=== PATIENT | male | born 1955 | race Caucasian/White ===

== ENCOUNTER → 2020-09-20 | Outpatient (CLI) | payer BC ==
[2020-09-20 09:25] LABS: HEMOGLOBIN 14.2 gm/dl (14.0-17.5); RED BLOOD COUNT 4.65 M/UL (4.20-5.50); WHITE BLOOD COUNT 12.5 K/UL (4.5-11.0)
[2020-09-20 09:51] LABS: BUN/CREATININE RATIO 13 (0-10)
[2020-09-21 07:10] LABS: THYROXINE (T4) 7.6 ug/dL (4.5-12.0)
[2020-09-21 08:10] LABS: VITAMIN D, 25-HYDROXY 42.7 ng/mL (30.0-100.0)
== END ==
LOC: LAB 08:14
PROVIDERS: Nurse Practitioner
DX: E55.9 Vitamin D deficiency, unspecified (principal); R53.83 Other fatigue; E78.5 Hyperlipidemia, unspecified
CPT/HCPCS: 80053; 80061; 84436; 84443; 84480; 85025

== ENCOUNTER → 2020-09-23 | Outpatient (CLI) | payer BC | LOC: CT 12:34 | DX: R10.31 Right lower quadrant pain (principal); R50.9 Fever, unspecified; K57.32 Diverticulitis of large intestine without perforation or abscess without bleeding; N20.0 Calculus of kidney; N43.3 Hydrocele, unspecified | CPT/HCPCS: Q9967 ==